=== PATIENT | female | born 1980 | race Two or more races ===

== ENCOUNTER → 2022-04-05 | Outpatient (CLI) | payer MEDICAID | END | disposition home or self-care (01) | LOC: LAB 10:41 | PROVIDERS: ATTEND Podiatrist | DX: S93.412A Sprain of calcaneofibular ligament of left ankle, initial encounter (principal); X58.XXXA Exposure to other specified factors, initial encounter; Y93.89 Activity, other specified; Y92.89 Other specified places as the place of occurrence of the external cause; Y99.8 Other external cause status | CPT/HCPCS: 36415; 82565; 84520 ==

== ENCOUNTER 2023-06-09 12:07 | Emergency (ER) | payer MEDICAID ==
[~2023-06-09] VITALS: Ht 172.7 cm; Wt 79.7 kg
[2023-06-09 12:43] VITALS: BP 100/62; PULSE 59; RESP 18; TEMP 98.1; O2SAT 98
[2023-06-09] MEDS ORDERED: CEPH500C PO (13:12)
[2023-06-09] MEDS ORDERED: NAPR-746 PO (13:12)
== END 2023-06-09 13:49 | disposition home or self-care (01) ==
LOC: ER 12:07
DX: H66.92 Otitis media, unspecified, left ear (principal); L04.0 Acute lymphadenitis of face, head and neck; F17.210 Nicotine dependence, cigarettes, uncomplicated